=== PATIENT | female | born 1975 | race Caucasian/White ===

== ENCOUNTER 2020-11-05 11:46 | Emergency (ER) | payer OTHER ==
[~2020-11-05] VITALS: Ht 165.1 cm; Wt 63.5 kg
[~2020-11-05 11:46] MED LIST: AZITHROMYCIN250 MG PO; IBUPROFEN200 MG PO
[2020-11-05] MEDS ORDERED: PREDNISONE20 MG PO (14:08)
== END 2020-11-05 14:15 | disposition home or self-care (01) ==
LOC: ED 11:46
DX: J45.901 Unspecified asthma with (acute) exacerbation (principal); Z87.891 Personal history of nicotine dependence; Z88.0 Allergy status to penicillin
CPT/HCPCS: 71045; 94640; 99285-25; J7512